=== PATIENT | male | born 1990 | race Caucasian/White ===

== ENCOUNTER 2020-12-15 13:56 | Outpatient (CLI) | payer MEDICAID, SELFPAY | END 2020-12-15 13:57 | LOC: RADSHAW 12-16 11:55 | PROVIDERS: PCP Physician Assistant; Visit Provider Nurse Practitioner | DX: G72.9 Myopathy, unspecified (principal); G62.9 Polyneuropathy, unspecified; G95.9 Disease of spinal cord, unspecified; F17.220 Nicotine dependence, chewing tobacco, uncomplicated | CPT/HCPCS: 99205 ==

== ENCOUNTER 2020-12-30 13:02 | Outpatient (CLI) | payer MEDICAID, SELFPAY ==
--- NOTE | 2020-12-30 13:07 | MR_ITS ---
WS: [id number] MRI CERVICAL SPINE NONCONTRAST AND CONTRAST TECHNIQUE: Sagittal T1, T2 and STIR imaging. Axial T2, gradient, and fiesta imaging. Post gadolinium imaging was obtained. CLINICAL INFORMATION: G95.9 - Disease of spinal cord, unspecified COMPARISON: None. FINDINGS: Straightening of the normal cervical lordosis. Cord signal appears normal. Small amount of artifact i n the cervical cord. No demyelinating lesions within the cervical cord. No abnormal gadolinium enhanc ement. No significant cord atrophy. C2-C3: Normal. C3-C4: Normal. C4-C5: Mild disc bulging with osteophytic ridging. Tiny central protrusion. Mild facet arthropathy. S jelena canal and foramen are patent. C5-C6: Mild disc bulging eccentric to the left with mild central canal stenosis. Moderate left forami nal narrowing. Mild facet arthropathy. C6-C7: Left eccentric disc bulging with mild central canal stenosis. Slight contact of the cervical c ord. Moderate to severe left bony foraminal narrowing. Mild right foraminal narrowing. Recommend paul elation for left C7 nerve root symptoms. C7-T1: No significant disc bulging. Spinal canal and foramen are patent. Visualized brain stem structures: Normal. Prevertebral soft tissues: Normal. MR/MR cervical spine wo/w [id number] IMPRESSION: 1. Straightening of the normal cervical lordosis. Cord signal is normal. No ab normal gadolinium enhancement. 2. Prominent left eccentric disc bulging with mild central canal stenosis C6-7 with slight contact of the cervical cord. 3. Left eccentric disc bulging with moderate to severe left foraminal narrowin g C6-7 impinges the exiting left C7 nerve root. Recommend correlation left C7 n erve root symptoms. 4. Left eccentric disc bulging C5-C6 with moderate left foraminal narrowing. R ecommend correlation left C6 nerve root symptoms. 5. Mild central canal stenosis C5-C6. 6. Mild facet arthropathy C4-5.
--- NOTE | 2020-12-30 13:07 | MR_ITS ---
WS: [id number] MRI THORACIC SPINE WITH CONTRAST TECHNIQUE: Sagittal T1, T2 and STIR imaging. Axial T2 imaging. Post gadolinium imaging was obtained. CLINICAL INFORMATION: G95.9 - Disease of spinal cord, unspecified COMPARISON: None. FINDINGS: Mild thoracic kyphosis. No acute compression. No high-grade central canal stenosis. Cord signal is no rmal. Small central protrusion at T6-7 with slight contact of the cervical cord. No significant centr al canal stenosis. Moderate facet arthropathy lower thoracic spine. Mild left T9-T10 and left T10-11 bony foraminal narrowing. Normal caliber descending thoracic aorta. Adrenal glands are normal. No abnormal gadolinium enhanceme nt. MR/MR thoracic spine wo/w [id number] IMPRESSION: 1. Mild thoracic kyphosis. No acute compression. No high-grade central canal s tenosis. 2. Cord signal is normal. No abnormal gadolinium enhancement. No lesions withi n the thoracic cord. 3. Small central disc protrusion at T6-7 with slight contact of the thoracic c ord. No significant central canal stenosis. 4. Moderate facet arthropathy lower thoracic spine. 5. Mild left T9-T10 and left T10-11 bony foraminal narrowing.
[2020-12-30] MEDS: gadobenate dimeglumine 20 mL vial IV (14:04)
== END 2020-12-30 13:03 | disposition home or self-care (01) ==
PROVIDERS: PCP Physician Assistant; Visit Provider Nurse Practitioner
DX: G62.9 Polyneuropathy, unspecified (principal); G95.9 Disease of spinal cord, unspecified
CPT/HCPCS: 72156; 72157; A9577

== ENCOUNTER → 2021-01-15 10:49 | Outpatient (BNVA) | payer MEDICAID, SELFPAY | PROVIDERS: PCP Physician Assistant; Referring Provider Specialist; Visit Provider Orthopaedic Surgery | DX: M47.897 Other spondylosis, lumbosacral region (principal); M54.50 Low back pain, unspecified | CPT/HCPCS: 72110 ==

== ENCOUNTER 2021-03-05 10:34 | Outpatient (CLI) | payer MEDICAID, SELFPAY ==
--- NOTE | 2021-03-05 10:47 | MR_ITS ---
WS: [id number] MRI LUMBAR SPINE NONCONTRAST TECHNIQUE: Sagittal T1, T2 and STIR imaging. Axial T1 and T2 imaging. CLINICAL INFORMATION: M54.9 - Dorsalgia, unspecified COMPARISON: None. FINDINGS: Mild lumbar curve. No acute compression. No high-grade central canal stenosis. L1-L2: Normal. L2-L3: Normal. L3-L4: No significant disc bulging. Mild facet arthropathy. Spinal canal and foramen are patent. L4-L5: Minimal annular bulging. Slight effacement of ventral thecal sac. Mild facet arthropathy. Spin al canal and foramen are patent. L5-S1: Mild disc bulging eccentric to the right with a tiny annular fissure. Slight impingement of th e right S1 nerve root. Mild right and no significant left foraminal narrowing. Mild facet arthropathy . Visualized pelvic bony structures: Normal. Paravertebral soft tissues: Normal. MR/MR lumbar spine wo con* [id number] IMPRESSION: 1. Mild lumbar curve. No acute compression. No high-grade central canal stenos is. 2. Mild annular bulging eccentric to the right L5-S1 with a tiny annular fissu re. Slight impingement traversing right S1 nerve root. Recommend correlation S1 nerve root symptoms. 3. Mild right L4-L5 and L5-S1 foraminal narrowing. 4. Mild facet arthropathy L4-L5 and L5-S1.
== END 2021-03-05 10:35 | disposition home or self-care (01) ==
LOC: RADSHAW 10:39
PROVIDERS: PCP Physician Assistant; Visit Provider Orthopaedic Surgery
DX: M47.816 Spondylosis without myelopathy or radiculopathy, lumbar region (principal); M47.817 Spondylosis without myelopathy or radiculopathy, lumbosacral region; M51.27 Other intervertebral disc displacement, lumbosacral region
CPT/HCPCS: 72148

== ENCOUNTER → 2021-04-21 10:18 | Outpatient (BNVA) | payer MEDICAID, SELFPAY | PROVIDERS: PCP Family Medicine; Referring Provider Orthopaedic Surgery; Visit Provider Anesthesiology Pain Medicine | DX: G89.29 Other chronic pain (principal); M48.062 Spinal stenosis, lumbar region with neurogenic claudication; M47.816 Spondylosis without myelopathy or radiculopathy, lumbar region; M54.16 Radiculopathy, lumbar region; M47.814 Spondylosis without myelopathy or radiculopathy, thoracic region; M54.12 Radiculopathy, cervical region; M47.812 Spondylosis without myelopathy or radiculopathy, cervical region; F17.220 Nicotine dependence, chewing tobacco, uncomplicated | CPT/HCPCS: 99205 ==